=== PATIENT | female | born 1985 ===

== ENCOUNTER 2025-07-24 10:20 | Outpatient (AMB) | payer MEDICAID, SELFPAY ==
[2025-07-24 10:34] VITALS: BP 108/67; PULSE 83; RESP 16; TEMP 36.2; O2SAT 98; BMI 26.4
--- NOTE | 2025-07-24 10:38 | OBCLNT_ITS ---
Vital Signs 07/24/25 10:34 07/24/25 10:40 Height 1.41 m Height Method Stated Weight 52.22 kg Weight Measurement Method Standing Scale BMI 26.4 BP 108/67 108/67 Blood Pressure Source Manual Cuff- Auscultation Blood Pressure Location Left Upper Arm Position Sitting Respiration 16 16 Pulse 83 83 Pulse Source Monitor Temp 97.2 F 97.2 F Temp Source Oral Pulse Oximetry (%) 98 98 Oxygen Delivery Method Room Air Allergies/Home Meds Allergies & Medications Allergies No Known Allergies Allergy (Verified 07/24/25 10:36) Intake Visit Data Collection New Patient or Established: Established Patient (seen at [facility] within 3 years) Reason for Visit:: OBI Seen by Clinical Staff ONLY (RN/MA): No Glazier Apprentice Required: Yes Glazier Apprentice's name/title: CHING JENSEN MA Do You Feel Safe at Home: Yes Authorities Contacted: N/A PCP or OBGYN visit in last 3 months: Yes Date of Last PCP or OBGYN visit: 04/26/25 Hx Now: Yes Are you currently on any form of Control: No Last menstrual period: 03/16/25 Pain Present Currently: Yes Pain Scale Used: Whipple-Da Silva/Numerical Pain scale:: 0 Smoking Status Smoking Status: Never smoker Questionnaires Covid-19 Vaccine Questionnaire Has patient been vacinated for Covid-19 Have you been vacinated for Covid-19: Yes PHQ-9 PHQ-2 Over the last 2 weeks, how often have you been bothered by any of the following problems? 1. Little interest or pleasure in doing things: not at all 2. Feeling down, depressed, or hopeless: not at all Total score: 0 PHQ-9 3. Trouble falling or staying asleep, or sleeping too much: Not at all 4. Feeling tired or having little energy: Not at all 5. Poor appetite or overeating: Not at all 6. Feeling bad about yourself - or that you are a failure or have let yourself or your family down: Not at all 7. Trouble concentrating on things, such as reading the newspaper or watching television: Not at all 8. Moving or speaking so slowly that other people could have noticed? - Or the opposite - being so fidgety or restless that you have been moving around a lot more than usual: not at all 9. Thoughts that you would be better off or of hurting yourself in some way: Not at all Total score: 0 If you checked off any problems, how difficult have these problems made it for you to do your work, take care of things at home, or get along with other people?: not difficult at all Source: Developed by Drs. Wesley Velez, Zhane Perkins, Timbo Bañuelos and colleagues, with an educational svetlana from [employer]. Depression screen completed yes Social History Living Situation History Marital Status: Lives With: Family Housing: House Housing Other:: pt lives with 2 kids Tobacco History Smoking Status: Never smoker Second Hand Smoke Exposure: No Alcohol History Alcohol Intake: Never Domestic Abuse History Do You Feel Safe at Home: Yes History of Present Illness HPI Narrative Patient is a at 18 weeks and 4 days gestation based on her last menstrual period of March 16, 2025, presenting for her first visit. She reports experiencing pressure in her lower abdomen, particularly when lying down to sleep, describing the sensation as like if it were a stone. She had an ultrasound yesterday which revealed placenta previa, a condition where the placenta is covering the lower part of the uterus and the cervix. She has a history of two previous pregnancies, both resulting in vaginal deliveries. Her children are now aged 21 and 5 years old. She has no history of sections. She has a history of gestational diabetes in her previous pregnancies. The patient was previously taking medication for diabetes but reports that she was told to stop the medication, presumably due to her current . She denies any history of high blood pressure. 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 Placenta previa noted. History of gestational diabetes. No sexual intercourse, no lifting weight s, avoid anything hitting stomach. Labs ordered: genetic testing, gender te sting, fasting glucose, one-hour glucose. Referral to specialist for special ultrasound. risks discussed, including pot ential for life-threatening bleeding due to placenta previa. Plan discussed with patient and patient verbalized understanding. Menstrual History Menstrual reliability: definite Flow: normal Menstrual regularity: regular Monthly: Yes Age at menarche: 16 On control pills at conception: No OB History : 3 Para: 2 Hx # Pregnancies: 0 Hx Total # of Abortions (Spontaneous & Elective): 0 # of Living Children: 2 Delivery History 1st : Child's name: MARYANN REESE date: 02/08/04 sex: male Delivery type: vaginal weight (lbs): 2267.962 g History of depression before or after : No 2nd : Child's name: JOSE date: 04/24/20 sex: female Delivery type: vaginal weight (lbs): 2721.554 g History of depression before or after : No Infection History & Risk Evaluation History of STDs: none HIV risk evaluation: low risk Hepatitis B risk evaluation: low risk Patient or partner has history of Genital Herpes: No Varicella/chicken pox status: immunized Genetic Screening & History Genetic Screening/Teratology Counseling - Includes patient, baby's father, or anyone in either family with: 1. Patient's age 35 years or older as of estimated date of delivery: Yes 2. Thalassemia (Macedonian, Pashto, Mediterranean, or Background); MCV less than 80: No 3. Neural Tube Defect (Meningomyelocele, Spina Bifida, or Anencephaly): No 4. Congenital Heart Defect: No 5. Down Syndrome: No 6. Guru-Sachs (Ashkenazi Restorationism, Cajun, Macedonian [place]): No 7. Shanice Disease (Ashkenazi Restorationism): No 8. Familial Dysautonomia (Ashkenazi Restorationism): No 9. Sickle Cell Disease or Trait (): No 10. Hemophilia or other blood disorders: No 11. Muscular Dystrophy: No 12. Cystic Fibrosis: No 13. Deepak's Chorea: No 14. Mental Retardation/Autism: No 15. Other inherited genetic or chromosomal disorder: No 16. Maternal Metabolic Disorder (EG,TYPE 1 Diabetes, PKU): No 17. Patient or baby's father had a child with defects not listed above: No 18. Recurrent loss or a stillbirth: No 19. Medications (including supplements, vitamins, herbs or otc drugs)/illicit/recreational drugs/alcohol since last menstrual period: No 20. Any other: No Infection History 1. Live with someone with TB or exposed to TB: No 2. Rash or viral illness since last menstrual period: No 3. Hepatitis B,C: No Other (see comments) Source: [employer] [place] [employer] Exam General General Appearance: alert, in no apparent distress and healthy appearing Head Head exam: atraumatic Neck Neck exam: Present normal inspection and trachea midline Chest Chest inspection: Present normal inspection and symmetric chest wall rise External exam: Present normal external exam; Absent tenderness Neuro Neurological exam: Present oriented X3 Psych Psychiatric exam: Present normal affect and normal mood Office Procedures OB Clinic LOC & Office Proc's Nursing/Assessment Patient Status: Established Patient OB Clinic Nursing Assessment: Medication Reconciliation, Update PMH in EMR and Vital Signs OB Clinic Coordination of Care: Education Complex Pt/Fam, Consent,records obtained, informed consent, Lab and Imaging orders and Staff clarify orders Special Needs: Heart tones Established Patient Charge Established Patient Point Assignment: 110 Established Patient Point Charge: EP Level 3 (80-115) Assessment & Plan Diagnosis / Problem List (1) Supervision of high risk , unspecified, second trimester: Status: Acute (2) Placenta previa: Status: Acute (3) Type 2 diabetes mellitus affecting in second trimester, antepartum: Status: Acute Plan Placenta previa Assessment: Placenta previa confirmed on ultrasound yesterday, with the placenta covering the cervix. Patient reports feeling pressure and a hard sensation in the lower abdomen when lying down, which is consistent with the diagnosis. Plan: - Refer to maternal- medicine specialist for further evaluation and management - Instruct patient on pelvic rest: no sexual intercourse - Advise against lifting heavy weights and to avoid abdominal trauma - Educate patient on signs and symptoms of bleeding to report immediately - Schedule follow-up appointment in 2 weeks , intrauterine, 16 weeks Plan: - Update estimated due date to January 07, 2026 based on 16 weeks gestation - Order comprehensive labs including genetic testing - Offer cell-free DNA testing for aneuploidy screening and sex determination - Provide education and counseling - Schedule next visit in 2 weeks Gestational diabetes Assessment: Patient has a history of gestational diabetes in a previous , managed with diet. She reports being off medication currently. Plan: - Order fasting glucose test and 1-hour glucose tolerance test - Await results to determine need for further management or referral to endocrinology
[2025-07-24 10:40] VITALS: BP 108/67; PULSE 83; RESP 16; TEMP 36.2; O2SAT 98
== END 2025-07-24 10:53 | disposition home or self-care (01) ==
LOC: HODSOBC 10:20
PROVIDERS: PCP Nurse Practitioner; Referring Provider Nurse Practitioner; Supervising Provider Obstetrics & Gynecology; Visit Provider Obstetrics & Gynecology
DX: O09.522 Supervision of elderly multigravida, second trimester (principal); O09.892 Supervision of other high risk pregnancies, second trimester; O44.02 Complete placenta previa NOS or without hemorrhage, second trimester; O24.112 Pre-existing type 2 diabetes mellitus, in pregnancy, second trimester; E11.9 Type 2 diabetes mellitus without complications; Z3A.16 16 weeks gestation of pregnancy
CPT/HCPCS: 99213; G0463

== ENCOUNTER 2025-10-14 09:37 | Outpatient (AMB) | payer MEDICAID, SELFPAY ==
[2025-10-14 09:54] VITALS: BP 122/68; PULSE 84; RESP 18; TEMP 36.2; O2SAT 84; BMI 27.8
--- NOTE | 2025-10-14 09:54 | OBCLNT_ITS ---
Vital Signs 10/14/25 09:54 Height 1.41 m Height Method Stated Weight 55.452 kg Weight Measurement Method Standing Scale BMI 27.8 BP 122/68 Blood Pressure Source Automatic Cuff Blood Pressure Location Left Upper Arm Position Sitting Respiration 18 Pulse 84 Pulse Source Monitor Temp 97.2 F Temp Source Oral Pulse Oximetry (%) 84 L Oxygen Delivery Method Room Air Allergies/Home Meds Allergies & Medications Allergies No Known Allergies Allergy (Verified 10/14/25 10:05) Medication Reconciliation aspirin 81 mg tablet 81 mg PO QDAY 90 days #90 tabs 10/14/25 [Rx] blood sugar diagnostic (Blood Glucose Test strips) #100 ea 10/14/25 [Rx] blood-glucose meter #1 ea 10/14/25 [Rx] lancets 21 gauge #100 ea 10/14/25 [Rx] Immunizations Immunizations Flu Vaccine in the Last 12 Months: No Flu Vaccine Exclusion Criteria: No Exclusion Criteria Care OB Visit Log OB Flowsheet Initial Weight: Not Recorded Date -?-?-?-?-?-?-?-?-?-?-?-?- EGA Weight BP Alb Glu CTX Pres Fundal ht FHR Mov Dilation Station Ef facement Hx Notes Visit Note 07/24/25 -?-?-?-?-?-?-?-?-?-?-?-?- 16w 1d 52.22 kg 108/67 108/67 at 16 week s 0 days gestation by ultrasound. Placenta previa noted. History of gestational diabetes. No sexual intercourse, no lifting weight s, avoid anything hitting stomach. Labs ordered: genetic testing, gender te sting, fasting glucose, one-hour glucose. Referral to specialist for special ultrasound. risks discussed, including pot ential for life-threatening bleeding due to placenta previa. Plan discussed with patient and patient verbalized understanding. 10/14/25 -?-?-?-?-?-?-?-?-?-?-?-?- 27w 6d 55.452 kg 122/68 absent cephalic 29 160 active - She has elevated blood sugar levels with an A1C of 7.8, indicating poor diabetic control. - Patient reports having insulin at home that was prescribed by her primary doctor. - She is uncertain about the specific name or type of insulin medication she has. - She does not currently have a glucose meter for home blood sugar monitoring. - Send glucose meter for home blood sugar monitoring - Follow up in one week with blood sugar readings and all insulin medications from home - Bring all insulin medications prescrib ed by primary doctor to next visit - May need to initiate insulin therapy b ased on elevated A1C of 7.8 - Patient to speak with Wanda regarding check-in procedures MINERVA Calculator Estimated Delivery Date Method Current WG Current Estimate 01/07/26 Ultrasound #1 28w 1d Other Estimates 12/21/25 LMP (Certain) 30w 4d Office Procedures OBC Clinic LOC & Office Proc's Nursing/Assessment Patient Status: Established Patient OB Clinic Nursing Assessment: Medication Reconciliation, Update PMH in EMR and Vital Signs OB Clinic Coordination of Care: Consent,records obtained, informed consent, Education Simp Pt/Fam, Lab and Imaging orders, Results/Orders obtained and Staff clarify orders Special Needs: Heart tones Established Patient Charge Established Patient Point Assignment: 110 Established Patient Point Charge: EP Level 3 (80-115) Assessment & Plan Diagnosis / Problem List (1) Type 2 diabetes mellitus affecting in second trimester, antepartum: Status: Acute (2) Supervision of high risk , unspecified, second trimester: Status: Acute Plan Problem List - Diabetes Mellitus in - Hyperglycemia Assessment 27-week 6-day patient with poorly controlled gestational diabetes mellitus, evidenced by elevated hemoglobin A1C of 7.8%. Patient reports having insulin at home prescribed by primary care physician but is uncertain about medication details. heart rate is reassuring at 160 beats per minute. Genetic testing and gender determination remain pending from testing performed on the . Due date calculated as January 08. Plan - Send glucose meter for home blood sugar monitoring - Follow up in one week with blood sugar readings and all insulin medications from home - Bring all insulin medications prescribed by primary doctor to next visit - May need to initiate insulin therapy based on elevated A1C of 7.8 - Patient to speak with Wanda regarding check-in procedures 1. Progress Reviewed gestational age (27 weeks 6 days), growth, and heart rate (160 bpm, normal). Planned frequent visits (scheduled return in 1 week due to diabetes management needs). 2. Instructed patient to monitor movements and report decreases immediately. 3. Testing Counseled on routine third-trimester labs per guidelines. Lab reports reviewed - genetics and gender results pending (takes 7 days from test date of ). Discussed potential need for ultrasound or monitoring based on risk factors. 4. Preeclampsia Precaution Educated on preeclampsia signs: severe headache, vision changes, right upper quadrant pain, sudden swelling. Advised urgent reporting of symptoms and discussed blood pressure monitoring if high risk. 5. Labor Precautions Reviewed labor signs: regular contractions, pelvic pressure, back pain, bleeding, or fluid leakage. Instructed to seek immediate care for these symptoms. 6. Lifestyle and Delivery Preparation Reinforced vitamins, nutrition, and safe activity. Discussed plan, pain management, and . Advised on labor preparation (e.g., hospital bag) and expectations. 7. Psychosocial Support Assessed emotional well-being and offered resources for mental health or parenting support.
== END 2025-10-14 10:44 | disposition home or self-care (01) ==
LOC: HODSOBC 09:37
PROVIDERS: Supervising Provider Obstetrics & Gynecology; Visit Provider Obstetrics & Gynecology
DX: O09.892 Supervision of other high risk pregnancies, second trimester (principal); O24.312 Unspecified pre-existing diabetes mellitus in pregnancy, second trimester; E11.65 Type 2 diabetes mellitus with hyperglycemia; O09.522 Supervision of elderly multigravida, second trimester; Z3A.27 27 weeks gestation of pregnancy
CPT/HCPCS: 99213; G0463

== ENCOUNTER 2025-11-16 11:32 | Outpatient (AMB) | payer MEDICAID, SELFPAY ==
[2025-11-16 11:44] VITALS: BP 132/85; PULSE 75; RESP 18; TEMP 36.2; O2SAT 97; BMI 28.0
--- NOTE | 2025-11-16 11:44 | OBCLNT_ITS ---
Vital Signs 11/16/25 11:44 Height 1.41 m Height Method Stated Weight 55.792 kg Weight Measurement Method Standing Scale BMI 28.0 BP 132/85 H Blood Pressure Source Automatic Cuff Blood Pressure Location Left Upper Arm Position Sitting Respiration 18 Pulse 75 Pulse Source Monitor Temp 97.2 F Temp Source Oral Pulse Oximetry (%) 97 Oxygen Delivery Method Room Air Allergies/Home Meds Allergies & Medications Allergies No Known Allergies Allergy (Verified 11/16/25 11:45) Medication Reconciliation aspirin 81 mg tablet 81 mg PO QDAY 90 days #90 tabs 10/14/25 [Rx Confirmed 11/16/25] blood sugar diagnostic (Blood Glucose Test strips) #100 ea 10/14/25 [Rx Confirmed 11/16/25] blood-glucose meter #1 ea 10/14/25 [Rx Confirmed 11/16/25] lancets 21 gauge #100 ea 10/14/25 [Rx Confirmed 11/16/25] insulin glargine 100 unit/mL (3 mL) subcutaneous pen (Basaglar KwikPen U-100 Insulin) 15 unit (0.15 mL) subcut QAM 30 days #5 mL 11/16/25 [Rx] pen needle, diabetic 29 gauge x 1/2 #100 ea 11/16/25 [Rx] Immunizations Immunizations Flu Vaccine in the Last 12 Months: No Flu Vaccine Exclusion Criteria: No Exclusion Criteria Care OB Visit Log OB Flowsheet Initial Weight: Not Recorded Date -?-?-?-?-?-?-?-?-?-?-?-?- EGA Weight BP Alb Glu CTX Pres Fundal ht FHR Mov Dilation Station Effacement Hx Notes Visit Note 07/24/25 -?-?-?-?-?--?-?-?-?-?-?-?- 16w 1d 52.22 kg 108/67 108/67 at 16 week s 0 days gestation by ultrasound. Placenta previa noted. History of gestational diabetes. No sexual intercourse, no lifting weight s, avoid anything hitting stomach. Labs ordered: genetic testing, gender te sting, fasting glucose, one-hour glucose. Referral to specialist for special ultrasound. risks discussed, including pot ential for life-threatening bleeding due to placenta previa. Plan discussed with patient and patient verbalized understanding. 11/26/25 -?-?-?-?-?-?-?-?-?-?-?-?- 27w 6d 55.452 kg 122/68 absent cephalic 29 160 active - She has elevated blood sugar levels with an A1C of 7.8, indicating poor diabetic control. - Patient reports having insulin at home that was prescribed by her primary doctor. - She is uncertain about the specific name or type of insulin medication she has. - She does not currently have a glucose meter for home blood sugar monitoring. - Send glucose meter for home blood sugar monitoring - Follow up in one week with blood sugar readings and all insulin medications from home - Bring all insulin medications prescrib ed by primary doctor to next visit - May need to initiate insulin therapy b ased on elevated A1C of 7.8 - Patient to speak with Wanda regarding check-in procedures MINERVA Calculator Estimated Delivery Date Method Current WG Current Estimate 01/07/26 Ultrasound #1 32w 4d Other Estimates 12/21/25 LMP (Certain) 35w 0d Office Procedures OBC Clinic LOC & Office Proc's Nursing/Assessment Patient Status: Established Patient OB Clinic Nursing Assessment: Medication Reconciliation, Update PMH in EMR and Vital Signs OB Clinic Coordination of Care: Complex Care and Chronic Disease 1-5, Consent,records obtained, informed consent, Education Simp Pt/Fam, Lab and Imaging orders, Results/Orders obtained and Staff clarify orders Special Needs: Heart tones Established Patient Charge Established Patient Point Assignment: 135 Established Patient Point Charge: EP Level 4 (120-155) Assessment & Plan Diagnosis / Problem List (1) Type 2 diabetes mellitus affecting in second trimester, antepartum: Status: Acute Plan Problem List - Gestational diabetes mellitus - Placenta previa Assessment 32-week and 4-day patient with poorly controlled gestational diabetes mellitus, evidenced by elevated A1c of 7.9% (corresponding to average glucose of approximately 180 mg/dL) and postprandial glucose levels exceeding 130 mg/dL, with fasting glucose at 90 mg/dL. Patient has placenta previa diagnosed at 16 weeks gestation. Patient reports missed scheduled monitoring appointments at the hospital and lacks reliable transportation. Patient is not currently on insulin therapy despite previous prescription from primary care provider. Plan - Restart insulin therapy with long-acting insulin to be taken once daily in the morning - Patient to monitor and record all blood glucose numbers and bring to next appointment - Schedule hospital monitoring appointments for surveillance due to diabetes - patient must attend as scheduled - Patient to arrange transportation or contact insurance card number for transport assistance - Consider disability paperwork - patient to obtain forms from office with Wanda's assistance for completion - Follow up appointment in 2 weeks - If patient unable to comply with glucose monitoring, will contact [facility] for home nursing services 1. Progress Reviewed gestational age at 32 weeks 4 days, growth, and heart rate. Planned frequent visits (every 2 weeks until 36 weeks, then weekly). 2. Instructed patient to monitor movements and report decreases immediately. 3. Testing Counseled on routine third-trimester labs per guidelines. Discussed potential need for ultrasound or monitoring based on risk fa ctors including poorly controlled gestational diabetes and placenta previa. 4. Preeclampsia Precaution Educated on preeclampsia signs: severe headache, vision changes, right upper quadrant pain, sudden swelling. Advised urgent reporting of symptoms and discussed blood pressure monitoring if high risk. 5. Labor Precautions Reviewed labor signs: regular contractions, pelvic pressure, back pain, bleeding, or fluid leakage. Instructed to seek immediate care for these symptoms. 6. Lifestyle and Delivery Preparation Reinforced vitamins, nutrition, and safe activity. Discussed plan, pain management, and . Advised on labor preparation (e.g., hospital bag) and expectations. 7. Psychosocial Support Assessed emotional well-being and offered resources for mental health or parenting support.
== END 2025-11-16 12:12 | disposition home or self-care (01) ==
LOC: HODSOBC 11:32
PROVIDERS: Supervising Provider Obstetrics & Gynecology; Visit Provider Obstetrics & Gynecology
DX: O09.893 Supervision of other high risk pregnancies, third trimester (principal); O24.113 Pre-existing type 2 diabetes mellitus, in pregnancy, third trimester; E11.65 Type 2 diabetes mellitus with hyperglycemia; O44.03 Complete placenta previa NOS or without hemorrhage, third trimester; O09.523 Supervision of elderly multigravida, third trimester; Z3A.32 32 weeks gestation of pregnancy; Z79.4 Long term (current) use of insulin
CPT/HCPCS: 99214; G0463